=== PATIENT | male | born 1970 | race Caucasian/White ===

== ENCOUNTER 2022-06-15 16:27 | Outpatient (CLI) | payer BC, SELFPAY ==
[2022-06-15 21:52] LABS: Albumin* 4.3 g/dL (3.3-5.0); Chloride* 101 mmol/L (96-114); Potassium* 4.5 mmol/L (3.6-5.1); Sodium* 139 mmol/L (135-149)
[2022-06-15 21:54] LABS: Alanine Aminotransferase* 42 U/L (4-50); Alkaline Phosphatase* 113 U/L (40-150); Aspartate Amino Transferase* 42 U/L (12-35); Bilirubin Total* 0.8 mg/dL (0.1-1.5); Blood Urea Nitrogen* 22 mg/dL (7-30); Carbon Dioxide* 29 mmol/L (20-32); Cholesterol* 212 mg/dL (90-199); Creatinine* 1.1 mg/dL (0.5-1.5); Estimated Glomerular Filt Rate 80 ml/min; Total Protein* 7.3 g/dL (6.0-8.3); Triglycerides* 195 mg/dL (40-149)
[2022-06-15 21:55] LABS: Calcium* 9.4 mg/dL (8.4-10.6); HDL Cholesterol* 42 mg/dL (>=40); LDL Cholesterol Calculated 131 mg/dL (<100)
[2022-06-15 22:10] LABS: Glucose* 95 mg/dL (60-115)
== END 2022-06-15 16:28 | disposition home or self-care (01) ==
PROVIDERS: PCP Family Medicine; Visit Provider Family Medicine
DX: R97.20 Elevated prostate specific antigen [PSA] (principal); I10 Essential (primary) hypertension; R63.5 Abnormal weight gain; E78.5 Hyperlipidemia, unspecified
CPT/HCPCS: 80053; 80061; 84153; 84443

== ENCOUNTER 2022-10-05 15:13 | Outpatient (CLI) | payer BC, SELFPAY | END 2022-10-05 15:14 | disposition home or self-care (01) | PROVIDERS: PCP Family Medicine; Visit Provider Family Medicine | DX: Z01.818 Encounter for other preprocedural examination (principal); G47.33 Obstructive sleep apnea (adult) (pediatric); I10 Essential (primary) hypertension; Z99.89 Dependence on other enabling machines and devices | CPT/HCPCS: 87081 ==

== ENCOUNTER 2023-06-15 07:50 | Outpatient (CLI) | payer BC, SELFPAY | END 2023-06-15 07:51 | disposition home or self-care (01) | LOC: NFLDREF 06-18 09:26 | PROVIDERS: PCP Family Medicine; Referring Provider Family Medicine; Visit Provider Family Medicine | DX: E78.5 Hyperlipidemia, unspecified (principal); I10 Essential (primary) hypertension; R97.20 Elevated prostate specific antigen [PSA] | CPT/HCPCS: 80048; 80053; 80061; 84153 ==

== ENCOUNTER 2023-10-05 08:00 | Outpatient (CLI) | payer BC, SELFPAY | END 2023-10-05 08:01 | disposition home or self-care (01) | LOC: NFLDREF 10-06 02:11 | PROVIDERS: PCP Family Medicine; Referring Provider Family Medicine; Visit Provider Family Medicine | DX: E78.5 Hyperlipidemia, unspecified (principal); I10 Essential (primary) hypertension; R53.83 Other fatigue; R63.5 Abnormal weight gain; E66.9 Obesity, unspecified | CPT/HCPCS: 80053; 80061; 84439; 84443 ==

== ENCOUNTER 2024-07-24 08:56 | Outpatient (CLI) | payer BC, SELFPAY | END 2024-07-24 08:57 | disposition home or self-care (01) | PROVIDERS: PCP Family Medicine; Visit Provider Family Medicine | DX: E78.5 Hyperlipidemia, unspecified (principal); I10 Essential (primary) hypertension; E66.9 Obesity, unspecified; K76.0 Fatty (change of) liver, not elsewhere classified; R97.20 Elevated prostate specific antigen [PSA]; G47.33 Obstructive sleep apnea (adult) (pediatric) | CPT/HCPCS: 80053; 80061; 84153; 84154 ==

== ENCOUNTER 2025-03-09 01:16 | Emergency (ER) | payer BC, SELFPAY ==
[2025-03-09 01:19] VITALS: BP 150/89; PULSE 92; RESP 18; TEMP 36.1; O2SAT 95; BMI 41.8
--- OUTSIDE RECORDS SUMMARY | 2025-03-09 01:20 | XMS_ITS | Clinical Summary ---
Author Organization [facility] Address [address] [place] [address] Care Team Providers Care Image Assembler Name Role Phone Juma Morales MD Primary Care Provider Source Comments You are receiving this document as you are listed as the primary care provider,follow-up provider, or the patient has been referred to you for consultation.This is in compliance with the Medicare and[facility] EHR Incentive Program,which states Providers who transition their patient to another setting of careor provider of care or refers their patient to another provider of care shouldprovide summary care record for each transition of care or referral. [facility] Allergies Active Allergy Reactions Criticality Noted Date Comments Oxycodone Other, see comments High 10/05/2014 Agitation Penicillins Hives,Itching,Rash High 05/03/1988 Medications cyclobenzaprine (FLEXERIL) 10 MG tablet Take 1 Tablet (10 mg) by mouth. Active hydroCHLOROthiaz gretchen (ORETIC) 25 MG tablet Take 1 Tablet (25 mg) by mouth daily. 05/28/2022 Active lansoprazole (PREVACID) 30 MG capsule 05/08/2017 Active losartan (COZAAR) 50 MG tablet Take 1 Tablet (50 mg) by mouth daily. 05/28/2022 Active metoprolol succinate (TOPROL XL) 50 MG 24 hour release tablet Take 1 Tablet (50 mg) by mouth daily. 05/22/2022 Active Misc Natural Products (OSTEO BI-FLEX JOINT SHIELD OR) 07/03/2022 Active multivitamin with minerals tablet Take 1 Tablet by mouth daily. Active rosuvastatin (CRESTOR) 5 MG tablet Take 1 Tablet (5 mg) by mouth daily at bedtime. 05/12/2022 Active acetaminophen (TYLENOL) 500 MG tabletIndication s:Status post left knee replacement Take 2 Tablets (1,000 mg) by mouth three times a day as needed for Pain. 100 Tablet 11 10/30/2022 Active ibuprofen (MOTRIN) 600 MG tabletIndication s:Status post total left knee replacement Take 1 Tablet (600 mg) by mouth three times a day. 100 Tablet 1 11/10/2022 Active Active Problems Problem Noted Date Diagnosed Date Primary osteoarthritis of right knee 07/16/2024 Status post total left knee replacement 11/27/19 23 Primary osteoarthritis of both knees 07/31/2022 Social History Tobacco Use Types Packs/Day Years Used Date Smoking Tobacco: Never Tobacco Cessation:Counseling Given: Not Answered Sex and Gender Information Value Date Recorded Sex Assigned at Not on file Legal Sex Male 3:49 AM CDT Gender Identity Not on file Sexual Orientation Not on file Last Filed Vital Signs Vital Sign Reading Time Taken Comments Blood Pressure - - Pulse - - Temperature - - Respiratory Rate - - Oxygen Saturation - - Inhaled Oxygen Concentration - - Weight 157.9 kg (348 lb) 07/16/2024 5:01 PM CDT Height 185.4 cm (6' 1) 07/16/2024 5:01 PM CDT Body Mass Index 45.91 07/16/2024 5:01 PM CDT Plan of Treatment Health Maintenance Due Date Last Done Comments Colon Cancer Screening Plan Due 1969 Diabetes Screening- (based o n age and BMI) 1969 Hep C Screening (Preventive Services) 1969 PSA Screening Discussion 1969 HIV Screening (Preventive Services) 1985 Adult Preventive Visit 1987 HepB Vaccine (1) 1988 Cholesterol 2004 Pneumococcal Vaccine 50+ Yrs (1 of 1 - PCV) 2019 Zoster/Shingles Vaccine (2 o f 2) 10/14/2020 08/19/2020 COVID-19 Vaccine (4 - 2023-2 5 season) 2024 09/05/2022, 02/05/2021, 01/15/2021 Influenza Vaccine (Season Ended) 2025 09/05/2022, 08/19/2020, 09/23/2014 DTaP/Tdap/Td Vaccine (2 - Tdap) 10/08/2027 10/08/2017 HepA Vaccine Aged Out No longer eligi ble based on patient's age to complete this topic Hib Vaccine Aged Out No longer eligi ble based on patient's age to complete this topic IPV (Polio) Vaccine Aged Out No longe r eligible based on patient's age to complete this topic MCV4 Vaccine Aged Out No longer eligi ble based on patient's age to complete this topic Meningococcal B Vaccine Aged Out No l onger eligible based on patient's age to complete this topic Insurance BLUE LINK Care Teams Image Assembler Relationship Specialty Start Date End Date Juma Morales MD [address] [place] [address] PCP - General Family Practice 07/31/22
--- OUTSIDE RECORDS SUMMARY | 2025-03-09 01:20 | XMS_ITS | Encounter Summary ---
Author Organization [facility] Address [address] [place] [address] Care Team Providers Care Tag Press Operator Name Role Phone None, Bfp Primary Care Provider Billy Car, January Primary Care Provider [phone] Clinic, [facility] Primary Care Provider Demarcus Renteria Primary Care Provider Encounter Details Date Type Department Care Team (Late st Contact Info) Description 09/16/2014 [facility] [address] [place] [phone] Herman Good MD [facility] [address] [phone] Preoperative examination, unspecified (Primary Dx) Social History Tobacco Use Types Packs/Day Years Used Date Smoking Tobacco: Never Smokeless Tobacco: Never Alcohol Use Standard Drinks/Week Comments Yes 0 (1 standard drink = 0.6 oz pur e alcohol) 6 dinks weekly Sex and Gender Information Value Date Recorded Sex Assigned at Not on file Legal Sex Male 2:58 AM GROUP PROGRAM MANAGER Gender Identity Not on file Sexual Orientation Not on file documented as of this encounter Plan of Treatment Not on file documented as of this encounter Results * Methicillin Resistant Staph Aureus PCR (09/23/2014 5:10 PM GROUP PROGRAM MANAGER) Specimen Description [facility] Methicillin Resist/Sens S. aureus PCR Negative MRSA Negative: SA Negative MRSA and Staphylococcus aureus target DNA not detected, presumed negative for MRSA and SA colonization or the number of bacteria present may be below the limit of detection for the assay. FDA approved assay performed using [employer] GeneXpert(R) real-time PCR. NEG [facility] 09/23/2014 5:10 PM GROUP PROGRAM MANAGER 09/23/2014 5:33 PM GROUP PROGRAM MANAGER us Herman Good MD LAB - MICRO GENERAL ORDERABLES Final Result [facility] [address] [place] [address] [facility] [address] [place], [place] [address] [phone] documented in this encounter Visit Diagnoses Diagnosis Preoperative examination, unspecified- Primary documented in this encounter Care Teams Tag Press Operator Relationship Specialty Start Date End Date None, Bfp PCP - General 11/04/99 09/29/14 JocelineJanuary PCP - General Physician Cloud Systems Architect 09/30/14 10/01/16 [facility], [address] [address] PCP - General 10/02/16 05/26/20 Dem[address]us Renteria [address] [address] PCP - General Family Practice 05/27/20 documented as of this encounter
--- OUTSIDE RECORDS SUMMARY | 2025-03-09 01:20 | XMS_ITS | Encounter Summary ---
Author Organization [facility] Address [address] [place] [address] Care Team Providers Care Automated Logistics Specialist Name Role Phone LeonardoalfredaJanuary Primary Care Provider [phone] [facility] Primary Care Provider Demarcus Renteria Primary Care Provider Encounter Details Date Type Department Care Team (Late st Contact Info) Description 09/20/2016 [facility] [address] [place] [phone] Herman Good MD [facility] [address] [phone] Pre-operative laboratory examination (Primary Dx) Social History Tobacco Use Types Packs/Day Years Used Date Smoking Tobacco: Never Smokeless Tobacco: Never Alcohol Use Standard Drinks/Week Comments Yes 0 (1 standard drink = 0.6 oz pur e alcohol) 6 dinks weekly Sex and Gender Information Value Date Recorded Sex Assigned at Not on file Legal Sex Male 2:58 AM WATER VALVE REPAIRER Gender Identity Not on file Sexual Orientation Not on file documented as of this encounter Plan of Treatment Not on file documented as of this encounter Results * Methicillin Resistant Staph Aureus PCR (09/20/2016 4:25 PM WATER VALVE REPAIRER) Specimen Description [facility] Methicillin Resist/Sens S. aureus PCR Negative MRSA Negative: SA Negative MRSA and Staphylococcus aureus target DNA not detected, presumed negative for MRSA and SA colonization or the number of bacteria present may be below the limit of detection for the assay. FDA approved assay performed using [employer] GeneXpert(R) real-time PCR. NEG [facility] 09/20/2016 4:25 PM WATER VALVE REPAIRER 09/20/2016 6:09 PM WATER VALVE REPAIRER us Herman Good MD LAB - MICRO GENERAL ORDERABLES Final Result [facility] [address] [place] [address], [facility] [address] [place], [place] [address] [phone] documented in this encounter Visit Diagnoses Diagnosis Pre-operative laboratory examination- Primary Pre-procedural laboratory examination documented in this encounter Care Teams Automated Logistics Specialist Relationship Specialty Start Date End Date January PCP - General Physician Lead Generation Specialist 09/30/14 10/01/16 [facility], [address] [address] PCP - General 10/02/16 05/26/20 Demarcus Renteria [address] [address] PCP - General Family Practice 05/27/20 documented as of this encounter
--- OUTSIDE RECORDS SUMMARY | 2025-03-09 01:20 | XMS_ITS | Clinical Summary ---
Author Organization [facility] Address [address] [place] [address] Care Team Providers Care Dietitian Teaching Name Role Phone Juma Morales MD Primary Care Provider [phone] Allergies Active Allergy Reactions Criticality Noted Date Comments Atorvastatin Myalgia 10/11/2022 Lisinopril Cough 10/11/2022 Penicillins Hives 10/27/2008 Medications hydrochlorothiazid e (HCTZ) 25 mg tablet Take 1 tablet by mouth once daily. 0 6 Active lansoprazole (PREVACID) 30 mg capsule TAKE 1 CAPSULE BY MOUTH DAILY TAKE 30 MINUTES PRIOR TO BREAKFAST OR FIRST MAIN MEAL OF THE DAY 3 9 Active metoprolol succinate (TOPROL XL) 50 mg sustained-release tablet Take 50 mg by mouth once daily. 0 Active losartan (COZAAR) 25 mg tablet 0 Active cvwwgctj-ebm-kkty- vitamin K 18 mg iron-25 mcg tab Take 1 Tablet by mouth once daily. Active sennosides-docusat e (SENOKOT S) (8.6-50 mg) tabletIndications: Primary osteoarthritis of left knee Take as needed for constipation. Hold for loose stool. Start with taking 1 tablet by mouth 2 times a day for 2 doses. If no bowel movement, increase to 2 tablets 2 times a day for 2 doses. If no bowel movement again, increase to 3 tablets 2 times a day. If greater than 2 bowel movements in 24 hours at any point, reduce to 1 tablet 2 times a day. 50 Tablet 10/17/2022 11:23 AM CITY BAILIFF 2 Active WalkerIndications: Primary osteoarthritis of left knee Walker with front wheels for home use. 1 Each 2 Active ibuprofen (IBU) 600 mg tabletIndications: Primary osteoarthritis of left knee Take 1 Tablet (600 mg) by mouth every 8 hours if needed for Pain. Maximum of 3200 mg in 24 hours. 60 Tablet 1 10/17/2022 11:23 AM CITY BAILIFF 2 Active HYDROmorphone (DILAUDID) 2 mg tabletIndications: Primary osteoarthritis of left knee Take 1-2 Tablets (2-4 mg) by mouth every 4 hours if needed for Pain. 40 Tablet 10/17/2022 11:23 AM CITY BAILIFF 2 Active Active Problems Problem Noted Date Diagnosed Date Primary osteoarthritis of left knee 10/12/2022 DJD (degenerative joint disease) 11/02/2008 Social History Tobacco Use Types Packs/Day Years Used Date Smoking Tobacco: Never Smokeless Tobacco: Never Tobacco Cessation:Counseling Given: Not Answered Alcohol Use Standard Drinks/Week Comments Never 0 (1 standard drink = 0.6 oz pur e alcohol) Social Connections Answer Date Recorded Frequency of Communication with Friends and Fami ly Not on file 10/22/2021 Financial Resource Strain Answer Date R ecorded Difficulty of Paying Living Expenses Not on file 10/22/2021 Difficulty of Paying Living Expenses Not on file 10/22/2021 Sex and Gender Information Value Date Recorded Sex Assigned at Not on file Legal Sex Male 7:32 AM CITY BAILIFF Gender Identity Not on file Sexual Orientation Not on file Obstetrics History Last Filed Vital Signs Vital Sign Reading Time Taken Comments Blood Pressure 147/74 10/17/2022 2:03 PM CITY BAILIFF Pulse 93 10/17/2022 2:03 PM CITY BAILIFF Temperature 36.7 C (98.1 F) 10/17/2022 10:56 AM CITY BAILIFF Respiratory Rate 16 10/17/2022 2:03 PM CITY BAILIFF Oxygen Saturation 92% 10/17/2022 2:03 PM CITY BAILIFF Inhaled Oxygen Concentration - - Weight 162.3 kg (357 lb 12.9 oz) 10/17/2022 6:54 AM CITY BAILIFF Height 188 cm (6' 2) 10/17/2022 6:54 AM CITY BAILIFF Body Mass Index 45.94 10/17/2022 6:54 AM CITY BAILIFF Plan of Treatment Health Maintenance Due Date Last Done Comments Tdap 1980 Depression screening for age 12+ 1981 HIV for age 15-65 1984 Hepatitis C screening for ag e 18-79 1987 Tetanus booster 1989 Colonoscopy through age 75 2014 Lipids for age 45-75 2014 Pneumococcal series for age 50+ (1 of 1 - PCV) 2019 Zoster (shingles) series for age 50+ (1 of 2) 2019 BMI (ht and wt on same day) for age 18+ 02/05/2021 02/06/2020, 02/14/2019, 02/22/2018, Additional history exists COVID-19 vaccine series ( season) 2024 09/05/2022, 02/05/2021, 01/15/2021 Influenza Vaccine (Season Ended) 2025 Medical Devices Implanted Type Area Layer Out Device Identifier Shelf Expiration Date Model / Serial / Lot Cmnt Bone Surg Simplex - [id number] Implanted:Qty: 1 on 11/02/[address] [facility] Right: Hip [employer] 05/22/2011 [id number] # / / [id number] Implant On The Fly - [id number] Implanted:Qty: 1 on 11/02/[address] [facility] Right: Hip [employer] 07/22/2012 [id number] / / [id number] Description:CORMET CUP SIZE 9/60MM Implant On The Fly - [id number] Implanted:Qty: 1 on 11/02/[address] [facility] Right: Hip [employer] 05/22/2012 [id number] / / [id number] Description:CORMET HEAD 9/54 MM Evolution Mp Cs Implanted:Qty: 1 on 10/17/2022 by Malik Ureña MD at [facility] Left: Knee H [employer] 04/01/2028 [id number] / / [id number] Cmnt Bone Simplex Hv - [id number] Implanted:Qty: 1 on 10/17/2022 by Malik Ureña MD at [facility] Left: Knee [employer] 03/21/2024 [id number] / / [id number] Cmnt Bone Simplex Hv - [id number] Implanted:Qty: 1 on 10/17/2022 by Malik Ureña MD at [facility] Left: Knee [employer] 05/21/2024 [id number] / / [id number] Evolution Tibial Base Implanted:Qty: 1 on 10/17/2022 by Malik Ureña MD at [facility] Left: Knee H [employer] 09/16/2030 [id number] / / [id number] Implanted:Qty: 1 on 10/17/2022 by Malik Ureña MD at [facility] Left: Knee H [employer] 04/01/2030 [id number] / / [id number] Evolution Cs/Cr Femoral Component Implanted:Qty: 1 on 10/17/2022 by Malik Ureña MD at [facility] Left: Knee 09/14/2028 [id number] / / [id number] Explanted Type Area Layer Out Device Identifier Shelf Expiration Date Model / Serial / Lot Pin Millan Nonthreaded 01/04 Strl [id number] Mk - [id number] Explanted:Qty: 1 on 11/02/[address] [facility] Right: Hip Mk [employer] 10/22/2017 [id number] / / [id number] Insurance [facility] x5 (Home) [phone] x5 (Work) ATTN ACCTS PAYABLE [address] [address] [place] [address] Advance Directives * Full Code (Latest Code Status on File) Date Activated Date Inactivated Comments 10/17/2022 6:32 AM 10/17/2022 4:29 PM Question Answer Comments Code Status Discussion: Not Discussed * Full Code Date Activated Date Inactivated Comments 11/02/2008 3:22 PM 11/04/2008 1:53 PM * Full Code Date Activated Date Inactivated Comments 11/02/2008 1:27 PM 11/02/2008 3:22 PM Care Teams Dietitian Teaching Relationship Specialty Start Date End Date Juma Morales MD [address] [place] [address] PCP - General Family Practice 09/29/22
--- OUTSIDE RECORDS SUMMARY | 2025-03-09 01:20 | XMS_ITS | Clinical Summary ---
Author Organization [place] Address [address] [place] [id number] Care Team Providers Care Senior Science Consultant Name Role Phone Demarcus Renteria Primary Care Provider Allergies Active Allergy Reactions Criticality Noted Date Comments Atorvastatin Muscle Pain (Myalgia) 06/08/2020 Hydromorphone Medium 06/11/2020 Oral route gives chest pain per patient Lisinopril Cough 06/07/2020 Oxycodone High 10/05/2014 Agitation Penicillins Hives 03/10/2014 Medications hydrochlorothiaz gretchen (MICROZIDE) 12.5 MG capsule Take 25 mg by mouth every morning Active LANSOPRAZOLE PO Take 30 mg by mouth every morning (before breakfast) Active COMPRESSION STOCKINGSIndicat ions:Status post hip replacement, unspecified laterality 1 each continuous 1 each 0 6 Active metoprolol succinate ER (TOPROL-XL) 50 MG 24 hr tablet Take 50 mg by mouth daily Active losartan (COZAAR) 25 MG tablet Take 25 mg by mouth daily Active cyclobenzaprine (FLEXERIL) 10 MG tablet Take 10 mg by mouth 3 times daily as needed for muscle spasms Active multivitamin w/minerals (MULTI-VITAMIN) tablet Take 1 tablet by mouth daily Active HYDROcodone-acet aminophen (NORCO) 10-325 MG per tabletIndication s:S/P lumbar fusion Take 1-2 tablets by mouth every 4 hours as needed for moderate to severe pain 50 tablet 0 Active Active Problems Problem Noted Date Diagnosed Date S/P total knee arthroplasty, left 10/20/2022 Primary osteoarthritis of both knees 10/20/2022 S/P lumbar fusion 06/10/2020 Degenerative arthritis of hip 10/05/2014 Status post hip replacement 11/09/2008 Overview (07/22/2012): (Problem list name updated by automated process. Provider to review and confirm.) Resolved Problems Problem Noted Date Diagnosed Date Resolved Date Aftercare following right hi p joint replacement surgery 10/18/2016 03/02/2017 Abnormal gait 10/18/2016 03/02/2017 Aftercare following joint replacement 11/09/2008 01/27/2009 Social History Tobacco Use Types Packs/Day Years Used Date Smoking Tobacco: Never Smokeless Tobacco: Never Alcohol Use Standard Drinks/Week Comments Yes 0 (1 standard drink = 0.6 oz pur e alcohol) 6 drinks weekly Adolescent Education Answer Date Record ed Getting School Help Needed Not on file 07/28 Sex and Gender Information Value Date Recorded Sex Assigned at Not on file 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 Gender Identity Not on file Sexual Orientation Not on file Last Filed Vital Signs Vital Sign Reading Time Taken Comments Blood Pressure 150/79 06/13/2020 8:48 AM CDT Pulse 100 06/13/2020 11:00 AM CDT Temperature 36.6 C (97.8 F) 06/13/2020 8:48 AM CDT Respiratory Rate 18 06/13/2020 8:48 AM CDT Oxygen Saturation 98% 06/13/2020 8:48 AM CDT Inhaled Oxygen Concentration - - Weight 152.9 kg (337 lb) 06/10/2020 9:19 AM CDT Height 188 cm (6' 2) 06/10/2020 9:19 AM CDT Body Mass Index 43.27 06/10/2020 9:19 AM CDT Plan of Treatment Health Maintenance Due Date Last Done Comments ADVANCE CARE PLANNING 1969 ANNUAL REVIEW OF HM ORDERS 1969 CT COLONOGRAPHY 1969 FIT 1969 FLEX SIG 1969 sDNA (Cologuard) 1969 YEARLY PREVENTIVE VISIT 1972 COLONOSCOPY 1979 COLORECTAL CANCER SCREENING 1979 HIV SCREENING 1984 HEPATITIS C SCREENING 1987 HEPATITIS B IMMUNIZATION (1 of 3 - 19+ 3-dose series) 1988 LIPID 2009 Pneumococcal Vaccine: 50+ Years (1 of 1 - PCV) 2019 DIABETES SCREENING 10/03/2019 10/03/2016, 10/06/2014, 10/05/2014 ZOSTER IMMUNIZATION (2 of 2) 10/14/2020 08/19/2020 COVID-19 Vaccine (4 - 2023-2 5 season) 2024 09/05/2022, 02/05/2021, 01/15/2021 PHQ-2 (once per calendar year) 2024 INFLUENZA VACCINE (Season Ended) 2025 09/05/2022, 08/19/2020, 09/23/2014 DTAP/TDAP/TD IMMUNIZATION (2 - Td or Tdap) 10/08/2027 10/08/2017 HPV IMMUNIZATION Aged Out No longer e ligible based on patient's age to complete this topic MENINGITIS IMMUNIZATION Aged Out No l onger eligible based on patient's age to complete this topic Medical Devices Implanted Type Area Title Insurance Sales Representative Device Identifier Shelf Expiration Date Model / Serial / Lot Graft Bone Magnifuse [id number] Implanted:Qty: 1 on 06/10/2020 by Dewey Danielson MD at [facility] Bone/Tissue /Biologic N/A: Spine Lumbar [employer] 04/06/2022 [id number] / [id number] / Imp Scr Hip Howm 6.5x30mm Gap Implanted:Qty: 1 on 10/02/2016 by Herman Good MD at [facility] Metallic Hardware/An chor Right: Hip [employer] 10/24/2020 / / [id number] Imp Scr Hip Howm 6.5x15mm Gap Implanted:Qty: 1 on 10/02/2016 by Herman Good MD at [facility] Metallic Hardware/An chor Right: Hip [employer] 08/22/2019 / / [id number] Imp Scr Hip Howm 6.5x30mm Gap Implanted:Qty: 1 on 10/02/2016 by Herman Good MD at [facility] Metallic Hardware/An chor Right: Hip [employer] 06/28/2021 / / [id number] Reline-O Screw, 6.5x50mm Implanted:Qty: 2 on 06/10/2020 by Dewey Danielson MD at [facility] Metallic Hardware/An chor N/A: Spine Lumbar [employer] [id number] / / [id number] [id number] 2019 Reline-O Screw, 7.5x50mm Implanted:Qty: 6 on 06/10/2020 by Dewey Danielson MD at [facility] Metallic Hardware/An chor N/A: Spine Lumbar [employer] [id number] / / [id number] 10AUG 2019 Imp Liner Strk Trident X3 Poly 36mm 0deg Sz G 623-00-36g Implanted:Qty: 1 on 10/02/2016 by Herman Good MD at [facility] Total Joint Component/I nsert Right: Hip [employer] 05/18/2021 623-00-36G / / [id number] Imp Shell Acet Strk Multi-Hole Rev 62mm Sz G 509-02-62g Implanted:Qty: 1 on 10/02/2016 by Herman Good MD at [facility] Total Joint Component/I nsert Right: Hip [employer] 01/22/2021 509-02-62G / / [id number] Imp Head Femoral Strk Biolox Delta Ceramic 36mm +0mm Implanted:Qty: 1 on 10/02/2016 by Herman Good MD at [facility] Total Joint Component/I nsert Right: Hip [employer] 05/30/2021 6570-0-136 / / [id number] Imp Stem Femoral Hip Strk Accolade Ii 132deg Sz 7 [id number] Implanted:Qty: 1 on 10/02/2016 by Herman Good MD at [facility] Total Joint Component/I nsert Right: Hip [employer] 06/28/2021 [id number] / / [id number] Imp Liner Strk Trident X3 Poly 36mm 0deg Sz F 623-00-36f Implanted:Qty: 1 on 10/05/2014 by Herman Good MD at [facility] Left: Hip [employer] 06/21/2019 623-00-36F / / [id number] Tritanium Hemispherical Cluster Hole Shell 60mm F Implanted:Qty: 1 on 10/05/2014 by Herman Good MD at [facility] Left: Hip [employer] 04/20/2019 502-03-60F / / [id number] Imp Scr Bone Strk Torx 6.5x20mm Can Implanted:Qty: 1 on 10/05/2014 by Herman Good MD at [facility] Left: Hip [employer] 04/20/2019 / / [id number] Accolade Ii 127deg Neck Angle Hip Stem #7 Implanted:Qty: 1 on 10/05/2014 by Herman Good MD at [facility] Left: Hip [employer] 07/21/2019 [id number] / / [id number] Imp Head Femoral Strk Biolox Delta Ceramic 36mm +0mm Implanted:Qty: 1 on 10/05/2014 by Herman Good MD at [facility] Left: Hip [employer] 07/21/2019 6570-0-136 / / [id number], [id number], 15deg Implanted:Qty: 1 on 06/10/2020 by Dewey Danielson MD at [facility] N/A: Spine Lumbar [employer] 06/05/2023 [id number] / / [id number] Cocr Jaciel [id number] Implanted:Qty: 1 on 06/10/2020 by Dewey Danielson MD at [facility] N/A: Spine Lumbar [employer] [id number] / / [id number] 06/10/2020 Cocr Jaciel [id number] Implanted:Qty: 1 on 06/10/2020 by Dewey Danielson MD at [facility] N/A: Spine Lumbar [employer] [id number] / / [id number] Reline Lock Screw Implanted:Qty: 8 on 06/10/2020 by Dewey Danielson MD at [facility] N/A: Spine Lumbar [employer] [id number] / / [id number] Procedures Procedure Name Priority Date/Time Associated Diagnosis Comments BASIC METABOLIC PANEL Routine 10/03/2016 6:51 AM SPEAKING UNIT ASSEMBLER from Last 3 Months or Most Recently Relevant to Health Maintenance Results * (ABNORMAL) Basic metabolic panel (10/03/2016 6:51 AM SPEAKING UNIT ASSEMBLER) Sodium 138 133 - 144 mmol/L [facility] Potassium 4.4 3.4 - 5.3 mmol/L [facility] Chloride 101 94 - 109 mmol/L [facility] Carbon Dioxide 27 20 - 32 mmol/L [facility] Anion Gap 10 3 - 14 mmol/L [facility] Glucose 155(H) 70 - 99 mg/dL [facility] Urea Nitrogen 18 7 - 30 mg/dL [facility] Creatinine 1.05 0.66 - 1.25 mg/dL [facility] GFR Estimate 76 >60 mL/min/1. m2 [facility] Comment:Non GFR Calc GFR Estimate If Black >90 GFR Calc >60 mL/min/1. 7m2 [facility] Calcium 8.7 8.5 - 10.1 mg/dL [facility] Blood specimen (specimen) 10/03/2016 6:51 AM SPEAKING UNIT ASSEMBLER 10/03/2016 7:18 AM SPEAKING UNIT ASSEMBLER us Katie Rubio MD LAB - BLOOD ORDERABLES Final Res ult [facility] [address] [place] [address], [facility] [phone] from Last 3 Months or Most Recently Relevant to Health Maintenance Insurance [employer] Advance Directives For more information, please contact: [phone] * Full Code (Latest Code Status on File) Date Activated Date Inactivated Comments 06/10/2020 9:04 PM Question Answer Comments Code status determined by: Discussion with patie nt/ legal decision maker * Full Code Date Activated Date Inactivated Comments 06/10/2020 6:13 PM 06/10/2020 9:04 PM All basic an d advanced life-sustaining interventions are performed as appropriate Question Answer Comments Code status determined by: Discussion with patie nt/ legal decision maker * Full Code Date Activated Date Inactivated Comments 10/02/2016 4:07 PM 10/03/2016 8:25 PM * Full Code Date Activated Date Inactivated Comments 10/05/2014 5:51 PM 10/06/2014 10:16 PM Care Teams Senior Science Consultant Relationship Specialty Start Date End Date Demarcus Renteria [id number] [id number] PCP - General Family Practice 05/27/20
--- NOTE | 2025-03-09 01:33 | CRLHL7_ITS ---
For Patients: As a result of the 21st Century Cures Act, medical imaging exams and procedure reports are released immediately into your electronic medical record. You may view this report before your referring provider. If you have questions, please contact your health care provider. INDICATION: Left flank pain history of stones TECHNIQUE: CT Abdomen and pelvis without i.v. contrast. Coronal and sagittal reformats were obtained. COMPARISON: None FINDINGS: Lower chest: A 9 mm nodule is noted in the right middle lobe. High-risk patients can include those of older age, history of heavy smoking, and upper lobe nodules or nodules with irregular or spiculated margins. Fleischner Society Recommendations are not applicable in patients younger than 35, patients with known cancer or immunocompromised states. Liver: Unremarkable. Spleen: Unremarkable. Pancreas: Unremarkable. Gallbladder: Unremarkable. Kidney: See comments in the Pelvis section. Adrenal: Unremarkable. Bowel: The stomach, small bowel, and colon are unremarkable. The appendix is normal in appearance and size. Vascular: Unremarkable. Lymph: Unremarkable. Peritoneum: Unremarkable. No pneumoperitoneum is seen. No significant ascites is noted. Pelvis: Evaluation of the pelvic soft tissues, distal ureters and osseous structures are limited by beam hardening artifacts from the bilateral hip prosthesis. There is a suspected 1 mm stone near the left ureterovesicular junction but this region is obscured by beam hardening artifacts. Mild left hydroureter is noted. Soft tissue: Eventration of the midline abdominal wall is present with diastases of the rectus abdominus muscles. Bone: Posterior spinal fusion of L2-L5 and anterior spinal fusion of L4-5 noted. Total laminectomy of L3 and L4 seen. IMPRESSIONS: 1. There is a suspected 1 mm stone near the left ureterovesicular junction but this region is obscured by beam hardening artifacts. Mild left hydroureter is noted. Correlation with clinical history and urinalysis is recommended. 2. A 9 mm nodule is noted in the right middle lobe. In accordance with the 2017 Revised Fleischner Society Recommendations, evaluation with follow-up CT in 3 months, biopsy or PET scan is recommended to exclude a primary pulmonary neoplasm. REFERENCE: 1. Dennis Johnson, Chema Rossi et al. Guidelines for Management of Incidental Pulmonary Nodules Detected on CT Images: From the Fleischner Society 2017. Radiology. 2017;284(1):228-43. DOI:10.1148/radiol.[id number] - Pubmed. Dictated by Buddy Gloria MD @ 03/09/2025 2:12:52 AM Please note that all CT scans at this facility use dose modulation, iterative reconstruction, and/or weight-based dosing when appropriate to reduce radiation dose to as low as reasonably achievable. Dictated by: Buddy Gloria MD @ 03/09/2025 02:13:01 (Electronically Signed)
--- NOTE | 2025-03-09 01:34 | ED.GENADULT ---
HPI - General Adult General Date Seen: 03/09/25 Chief complaint: Flank Pain Stated complaint: possible kidney stone Time Seen by Provider: 03/09/25 01:27 Source: patient Mode of arrival: ambulatory Limitations: no limitations History of Present Illness HPI narrative: patient is a 54-year-old male presenting for left flank pain. States pain started suddenly at 23:30 and it will come up from sleep. describes as a sharp stabbing sensation in his left mid flank region. States he has had pain like this about 10 years ago when he had a previous kidney stone. Has not noticed any fevers or chills. Does have some nausea. States the pain seems to come and go. Has not taking anything for pain yet. Denies any abdominal pain. Does have some nausea but has not had any vomiting. Has not noticed any dysuria but has had blood in his urine. No blood in his urine is chronic low he states that does not seem any different than his baseline. Denies any chest pain, shortness of breath, lightheadedness, dizziness, weakness, numbness, diarrhea, constipation, headache, vision changes. No other concerns noted at this time. Related Data Home Medications ?Medication ?Instructions ?Recorded ?Confirmed multivitamin 1 tab PO QDAY 06/15/22 07/24/24 Previous Rx's ?Medication ?Instructions ?Recorded lansoprazole 30 mg capsule,delayed 30 mg PO QDAY #90 caps 07/24/24 release metoprolol succinate 50 mg 50 - 100 mg (1 - 2 x 50 mg) PO 07/24/24 tablet,extended release 24 hr DAILY #180 tabs losartan 100 1 tab PO DAILY #90 tabs 08/01/24 mg-hydrochlorothiazide 25 mg tablet semaglutide (weight loss) 1.7 1.7 mg (0.75 mL) subcut QWEEK #3 mL 02/16/25 mg/0.75 mL subcutaneous pen injector ketorolac 10 mg tablet 10 mg PO Q6H PRN pain #20 tabs 03/09/25 tamsulosin 0.4 mg capsule 0.4 mg PO DAILY #7 caps 03/09/25 Allergies Allergy/AdvReac Type Severity Reaction Status Date / Time penicillin V Allergy Intermediate Hives Verified 07/24/24 08:44 lisinopril Allergy Mild Cough Verified 07/24/24 08:44 atorvastatin AdvReac Intermediate Myalgias Verified 07/24/24 08:44 Review of Systems Status of ROS: Reports: 10 or more systems reviewed and unremarkable except as noted in History and below PFSH [facility] Medical History (Updated 03/09/25 @ 02:25 by Phillip Cabrera DO) COVID ?U07.1 - COVID-19 (ICD-10) Weight gain, abnormal ?R63.5 - Abnormal weight gain (ICD-10) Plantar fasciitis of right foot ?M72.2 - Plantar fascial fibromatosis (ICD-10) Cellulitis of right lower extremity ?L03.115 - Cellulitis of right lower limb (ICD-10) Surgical History (Updated 05/26/22 @ 08:37 by Ariane Landin) History of total left hip replacement ?Z96.642 - Presence of left artificial hip joint (ICD-10) History of operative procedure on hip ?Z98.890 - Other specified postprocedural states (ICD-10) History of knee surgery ?Z98.890 - Other specified postprocedural states (ICD-10) History of fusion of lumbar spine ?Z98.1 - Arthrodesis status (ICD-10) Family History (Updated 05/26/22 @ 08:40 by Ariane Landin) Sister Breast cancer Mother History of colonic polyps High blood pressure Father Coronary artery disease Aunt Diabetes Family/Other High blood pressure Son Leukemia Social History (Updated 05/26/22 @ 08:40 by Ariane Landin) Narrative: Has 2 children Non-smoker Smoking Status: Never smoker Do you use any of these nicotine containing products: None How often do you have a drink containing alcohol: never AUDIT-C Alcohol total score: 0 Non-prescribed substance use: denies use Exam Narrative: Exam Narrative: Const: Well-nourished, Well-developed, in mild distress Eyes: PERRL, no conjunctival injection, and symmetrical lids HENT: Atraumatic external nose and ears. Moist mucous membranes. Neck: Symmetric, trachea midline, No thyromegaly. CVS: RRR, No murmurs or gallops. Peripheral pulses 2+ and equal in all extremities RESP: Unlabored respiratory effort. Clear to auscultation bilaterally. GI: Nontender/Nondistended, No rebound or guarding. Mild left CVA tenderness MSK:Extremities w/o deformity, Normal Active ROM Skin: Warm, Dry. No rashes or lesions. Neuro: Normal Muscle tone, No focal neurological deficits. Psych: Awake, Alert, & Oriented x3. Appropriate mood and affect. Const: Vital Signs, click to edit/add: Vital Signs - 24 hr 03/09/25 01:19 Temperature 96.9 F L Pulse Rate [Right Pulse Oximeter] 92 Respiratory Rate 18 Blood Pressure [Ri ght Upper Arm] 150/89 H Pulse Oximetry 95 Oxygen Delivery Me thod Room Air Course Vital Signs Vital signs: Initial Vital Signs Temperature 96.9 F L 03/09/25 01:19 Temperature Source Temporal Artery Scan 03/09/25 01:19 Pulse Rate 92 03/09/25 01:19 Pulse Rhythm Regular 03/09/25 01:19 Respiratory Rate 18 03/09/25 01:19 Blood Pressure 150/89 H 03/09/25 01:19 Blood Pressure Mean 109 H 03/09/25 01:19 Blood Pressure Position Sitting 03/09/25 01:19 Pulse Oximetry 95 03/09/25 01:19 Oxygen Delivery Method Room Air 03/09/25 01:19 Vital Signs Temperature 96.9 F L 03/09/25 01:19 Pulse Rate 92 03/09/25 01:19 Respiratory Rate 18 03/09/25 01:19 Blood Pressure 150/89 H 03/09/25 01:19 Pulse Oximetry 95 03/09/25 01:19 Oxygen Delivery Method Room Air 03/09/25 01:19 Temperature 96.9 F L 03/09/25 01:19 Pulse Rate 92 03/09/25 01:19 Respiratory Rate 18 03/09/25 01:19 Blood Pressure 150/89 H 03/09/25 01:19 Pulse Oximetry 95 03/09/25 01:19 Oxygen Delivery Method Room Air 03/09/25 01:19 Medications Administered Medications: Discontinued Medications Generic Name Dose Route Start Last Admin Trade Name Freq PRN Reason Stop Dose Admin Ketorolac Tromethamine 15 mg 03/09/25 01:33 03/09/25 01:52 Ketorolac 15 Mg/Ml Inj IVP 03/09/25 01:34 15 mg ONCE ONE Administration Ondansetron HCl 4 mg 03/09/25 01:33 03/09/25 01:52 Ondansetron 2 Mg/Ml Inj IVP 03/09/25 01:34 4 mg ONCE ONE Administration Medical Decision Making MDM Narrative Medical decision making narrative: patient is a 54-year-old male presenting for flank pain. The differential diagnosis of flank pain including vascular causes such as aortic aneurysm, renal vascular issues, aortic dissection, mesenteric ischemia, nephrolithiasis, ureter stricture, pyelonephritis, along with several other GI and gynecological/ causes . Based on his description my 1. Differential at this time is a kidney stone. Will do a CT scan non con. He is having no abdominal discomfort and I do not believe contrast is necessary. While also order a CBC, urinalysis, BMP. Zofran given for nausea and Toradol for pain. Urinalysis shows blood in the urine but no signs of a UTI-his lab work shows no concerning abnormalities. CT scan shows a likely 1 mm stone at the UVJ junction with some mild hydroureter on the left. There is some beam hardening artifact making it difficult to definitively say. This is consistent with the patient's symptoms. Toradol did seem to help somewhat with his symptoms. He declines any narcotics. I did inform him of the nodule seen in his long in the states they are aware of it. Patient will be discharged Zofran via instymeds and Toradol in tamsulosin sent to his pharmacy Lab Data Labs: Lab Results 03/09/25 Range/Units 01:45 WBC 8.85 (4.50-11.00) K/uL RBC 4.95 (4.30-5.90) m/uL Hgb 15.1 (13.5-17.5) gm/dL Hct 44.0 (37.0-53.0) % MCV 89 (80-100) fL MCH 31 (26-34) pg MCHC 34 (32-36) gm/dL RDW Coeff of Beck 13.0 (11.5-15.5) % Plt Count 281 (140-440) K/uL Neut % (Auto) 67.1 (42.0-72.0) % Lymph % (Auto) 21.2 (20-44) % Sac % (Auto) 9.5 (0.0-11.0) % Eos % (Auto) 1.9 (0.0-7.0) % Baso % (Auto) 0.2 (0.0-3.0) % Neut # (Auto) 5.93 (1.7-7.0) K/uL Lymph # (Auto) 1.88 (0.90-2.90) K/uL Sac # (Auto) 0.80 (0.00-0.90) K/UL Eos # (Auto) 0.17 (0.00-0.50) K/uL Baso # (Auto) 0.02 (0.00-0.30) K/uL Abs Immat Gran (auto) 0.01 (0.00-0.30) K/uL Imm/Tot Granulo (auto) 0.1 % Sodium 142 (135-149) mmol/L Potassium 3.8 (3.6-5.1) mmol/L Chloride 106 (96-114) mmol/L Carbon Dioxide 27 (20-32) mmol/L Anion Gap 9 (7-15) mEq/L BUN 20 (7-30) mg/dL Creatinine 1.1 (0.5-1.5) mg/dL Estimated Creat Clear 90.69 Estimated GFR 79 ml/min Glucose 109 (60-115) mg/dL Calcium 9.4 (8.4-10.6) mg/dL Urine Color Yellow (Yellow) Urine Appearance Clear (Clear) Urine pH 5.5 (5.0-8.5) Ur Specific Springer 1.025 (1.000-1.030) Urine Protein 1+ A (Negative) Urine Glucose (UA) Negative (Negative) Urine Ketones Trace A (Negative) Urine Blood 3+ A (Negative) Urine Nitrite Negative (Negative) Urine Bilirubin 1+ A (Negative) Urine Urobilinogen 0.2 (0.2-1.0) Ur Leukocyte Esterase Negative (Negative) Urine RBC 5-10 A (0-2) Urine WBC 0-2 (0-5) Ur Squamous Epith Cells None (None-Few) Urine Bacteria None (None) Imaging Data CT scan abdomen pelvis: Attestation: I have reviewed the pertinent imaging results. Radiologist's impression: 1. There is a suspected 1 mm stone near the left ureterovesicular junction but this region is obscured by beam hardening artifacts. Mild left hydroureter is noted. Correlation with clinical history and urinalysis is recommended. 2. A 9 mm nodule is noted in the right middle lobe. In accordance with the 2017 Revised Fleischner Society Recommendations, evaluation with follow-up CT in 3 months, biopsy or PET scan is recommended to exclude a primary pulmonary neoplasm. REFERENCE: 1. Dennis Johnson, Chema Rossi et al. Guidelines for Management of Incidental Pulmonary Nodules Detected on CT Images: From the Fleischner Society 2017. Radiology. 2017;284(1):228-43. DOI:10.1148/radiol.[id number] - Pubmed. Dictated by Buddy Gloria MD @ 03/09/2025 2:12:52 AM Please note that all CT scans at this facility use dose modulation, iterative reconstruction, and/or weight-based dosing when appropriate to reduce radiation dose to as low as reasonably achievable. Dictated by: Buddy Gloria MD @ 03/09/2025 02:13:01 Discharge Plan Discharge Clinical Impression: Urolithiasis Qualifiers: Urinary calculus location: ureter Qualified Code(s): N20.1 - Calculus of ureter Patient Disposition: Home, Self-Care Condition: Stable Instructions: How to Strain Your Urine (ED) Additional Instructions: Use the Toradol as needed for your pain. This is the same class of drugs ibuprofen and other NSAIDs so do not use those medications will using the Toradol. You can continue to use Tylenol. Make sure to take the tamsulosin daily until the stone is passed. Use the Zofran as needed, provided via instymeds, for nausea. Prescriptions: New ketorolac 10 mg tablet 10 mg PO Q6H PRN (Reason: pain) Qty: 20 0RF Rx Instructions: maximum total duration of 5 days from all oral, intranasal, or parenteral formulations tamsulosin 0.4 mg capsule 0.4 mg PO DAILY Qty: 7 0RF No Action multivitamin Tablet 1 tab PO QDAY metoprolol succinate 50 mg tablet extended release 24 hr 50 - 100 mg PO DAILY Qty: 180 3RF lansoprazole 30 mg capsule,delayed release(DR/EC) 30 mg PO QDAY Qty: 90 3RF losartan-hydrochlorothiazide 100-25 mg tablet 1 tab PO DAILY Qty: 90 3RF semaglutide (weight loss) 1.7 mg/0.75 mL pen injector 1.7 mg subcut QWEEK Qty: 3 5RF Rx Instructions: administer weeks 13 through 16 of therapy Follow Up/Referrals: Juma Morales MD [Primary Care Provider] - Stand Alone Forms: Screen Tonic Info Instructions
[2025-03-09 01:48] LABS: Appearance Urine Clear (Clear); Basophils Absolute Auto 0.02 K/uL (0.00-0.30); Basophils Percent Auto 0.2 % (0.0-3.0); Bilirubin Urine 1+ (Negative); Blood Urine 3+ (Negative); Color Urine Yellow (Yellow); Eosinophils Absolute Auto 0.17 K/uL (0.00-0.50); Eosinophils Percent Auto 1.9 % (0.0-7.0); Glucose Urine Negative (Negative); Hemoglobin* 15.1 gm/dL (13.5-17.5); Immature Granulocytes Abs Auto 0.01 K/uL (0.00-0.30); Immature Granulocytes Pct Auto 0.1 %; Ketones Urine Trace (Negative); Leukocyte Esterase Urine Negative (Negative); Lymphocytes Absolute Auto 1.88 K/uL (0.90-2.90); Lymphocytes Percent Auto 21.2 % (20-44); Mean Corpuscular HGB Conc 34 gm/dL (32-36); Mean Corpuscular Hemoglobin 31 pg (26-34); Mean Corpuscular Volume 89 fL (80-100); Monocytes Percent Auto 9.5 % (0.0-11.0); Neutrophils Absolute Auto 5.93 K/uL (1.7-7.0); Neutrophils Percent Auto 67.1 % (42.0-72.0); Nitrite Urine Negative (Negative); Platelet Count* 281 K/uL (140-440); Protein Urine 1+ (Negative); Red Blood Count 4.95 m/uL (4.30-5.90); Specific Gravity Urine 1.025 (1.000-1.030); Urobilinogen Urine 0.2 (0.2-1.0); White Blood Count* 8.85 K/uL (4.50-11.00); pH Urine 5.5 (5.0-8.5)
[2025-03-09] MEDS: ONDANSETRON 2 MG/ML inj 4 MG IVP (01:52)
[2025-03-09] MEDS: KETOROLAC 15 MG/ML inj IVP (01:52)
[2025-03-09 01:59] LABS: Slide Review Reflex No; WBC Urine 0-2 (0-5)
[2025-03-09 02:10] LABS: Anion Gap 9 mEq/L (7-15); Blood Urea Nitrogen* 20 mg/dL (7-30); Calcium* 9.4 mg/dL (8.4-10.6); Carbon Dioxide* 27 mmol/L (20-32); Chloride* 106 mmol/L (96-114); Creatinine* 1.1 mg/dL (0.5-1.5); Est. Creatinine Clearance* 90.69; Estimated Glomerular Filt Rate 79 ml/min; Glucose* 109 mg/dL (60-115); Potassium* 3.8 mmol/L (3.6-5.1); Sodium* 142 mmol/L (135-149)
--- OUTSIDE RECORDS SUMMARY | 2025-03-09 02:28 | XMS_ITS | Encounter Summary ---
Author Organization [place] Address [address] [place] [address] Care Team Providers Care Veneer Drier Feeder Name Role Phone LeonardoalfredaJanuary Primary Care Provider [phone] [facility] Primary Care Provider Demarcus Renteria Primary Care Provider Encounter Details Date Type Department Care Team (Late st Contact Info) Description 09/20/2016 [facility] [address] [place] [id number] Herman Good MD [facility] [address] [address] Pre-operative laboratory examination (Primary Dx) Social History Tobacco Use Types Packs/Day Years Used Date Smoking Tobacco: Never Smokeless Tobacco: Never Alcohol Use Standard Drinks/Week Comments Yes 0 (1 standard drink = 0.6 oz pur e alcohol) 6 dinks weekly Sex and Gender Information Value Date Recorded Sex Assigned at Not on file Legal Sex Male 2:58 AM WELFARE INTERVIEWER Gender Identity Not on file Sexual Orientation Not on file documented as of this encounter Plan of Treatment Not on file documented as of this encounter Results * Methicillin Resistant Staph Aureus PCR (09/20/2016 4:25 PM WELFARE INTERVIEWER) Specimen Description [facility] Methicillin Resist/Sens S. aureus PCR Negative MRSA Negative: SA Negative MRSA and Staphylococcus aureus target DNA not detected, presumed negative for MRSA and SA colonization or the number of bacteria present may be below the limit of detection for the assay. FDA approved assay performed using Paradine GeneXpert(R) real-time PCR. NEG [facility] 09/20/2016 4:25 PM WELFARE INTERVIEWER 09/20/2016 6:09 PM WELFARE INTERVIEWER us Herman Good MD LAB - MICRO GENERAL ORDERABLES Final Result [facility] [address] [place] [address], [facility] [address], [place] [address] [phone] documented in this encounter Visit Diagnoses Diagnosis Pre-operative laboratory examination- Primary Pre-procedural laboratory examination documented in this encounter Care Teams Veneer Drier Feeder Relationship Specialty Start Date End Date January PCP - General Physician Cotton Ball Bagger 09/30/14 10/01/16 [facility], [address] [address] PCP - General 10/02/16 05/26/20 Demarcus Renteria [address] [address] PCP - General Family Practice 05/27/20 documented as of this encounter
--- OUTSIDE RECORDS SUMMARY | 2025-03-09 02:28 | XMS_ITS | Clinical Summary ---
Author Organization [email or web address] Address [address] [place] [address] Care Team Providers Care Tool Or Die Drawing Checker Name Role Phone Juma Morales MD Primary Care Provider [phone] Source Comments You are receiving this document as you are listed as the primary care provider,follow-up provider, or the patient has been referred to you for consultation.This is in compliance with the Medicare and[facility] EHR Incentive Program,which states Providers who transition their patient to another setting of careor provider of care or refers their patient to another provider of care shouldprovide summary care record for each transition of care or referral. [employer] Allergies Active Allergy Reactions Criticality Noted Date [...] this topic Insurance BLUE LINK Care Teams Tool Or Die Drawing Checker Relationship Specialty Start Date End Date Juma Morales MD [address] [place] [address] PCP - General Family Practice 07/31/22
--- OUTSIDE RECORDS SUMMARY | 2025-03-09 02:28 | XMS_ITS | Encounter Summary ---
Author Organization [place] Address [address] [place] [address] Care Team Providers Care Air Traffic Controller Center Name Role Phone None, Bfp Primary Care Provider Billy Car, January Primary Care Provider Clinic, [facility] Primary Care Provider Demarcus Renteria Primary Care Provider [phone] Encounter Details Date Type Department Care Team (Late st Contact Info) Description 09/16/2014 [facility] [address] [place] [phone] Herman Good MD [facility] [address] [phone] Preoperative examination, unspecified (Primary Dx) Social History Tobacco Use Types Packs/Day Years Used Date Smoking Tobacco: Never Smokeless Tobacco: Never Alcohol Use Standard Drinks/Week Comments Yes 0 (1 standard drink = 0.6 oz pur e alcohol) 6 dinks weekly Sex and Gender Information Value Date Recorded Sex Assigned at Not on file Legal Sex Male 2:58 AM COLD MILL OPERATOR Gender Identity Not on file Sexual Orientation Not on file documented as of this encounter Plan of Treatment Not on file documented as of this encounter Results * Methicillin Resistant Staph Aureus PCR (09/23/2014 5:10 PM COLD MILL OPERATOR) Specimen Description [facility] Methicillin Resist/Sens S. aureus PCR Negative MRSA Negative: SA Negative MRSA and Staphylococcus aureus target DNA not detected, presumed negative for MRSA and SA colonization or the number of bacteria present may be below the limit of detection for the assay. FDA approved assay performed using OPPRTUNITY GeneXpert(R) real-time PCR. NEG [facility] 09/23/2014 5:10 PM COLD MILL OPERATOR 09/23/2014 5:33 PM COLD MILL OPERATOR us Herman Good MD LAB - MICRO GENERAL ORDERABLES Final Result [facility] [address] [place] [address] [facility] [address] [place], [place] [address] [phone] documented in this encounter Visit Diagnoses Diagnosis Preoperative examination, unspecified- Primary documented in this encounter Care Teams Air Traffic Controller Center Relationship Specialty Start Date End Date None, Bfp PCP - General 11/04/99 09/29/14 JocelineJanuary PCP - General Physician Handkerchief Presser 09/30/14 10/01/16 [facility], [address] [address] PCP - General 10/02/16 05/26/20 Demarcus Renteria [address] [address] PCP - General Family Practice 05/27/20 documented as of this encounter
--- OUTSIDE RECORDS SUMMARY | 2025-03-09 02:28 | XMS_ITS | Clinical Summary ---
Author Organization [place] Address [address] [place] [address] Care Team Providers Care Purchasing And Claims Supervisor Name Role Phone Demarcus Renteria Primary Care Provider [phone] Allergies Active Allergy Reactions Criticality Noted Date [...] on file Legal Sex Male 2:58 AM JUNIOR ENGINEER Gender Identity Not on file Sexual Orientation [...] this topic Medical Devices Implanted Type Area Ship Boss Device Identifier Shelf Expiration Date Model / Serial / Lot Graft Bone Magnifuse [id number] Implanted:Qty: 1 on 06/10/2020 by Dewey Danielson MD at [facility] Bone/Tissue /Biologic N/A: Spine Lumbar [employer] 04/06/2022 [id number] / [id number] / Imp Scr Hip Howm 6.5x30mm Gap Implanted:Qty: 1 on 10/02/2016 by Herman Good MD at [facility] Metallic Hardware/An chor Right: Hip [employer] 10/24/2020 / / [id number] Imp Scr Hip Howm 6.5x15mm Gap Implanted:Qty: 1 on 10/02/2016 by Herman Good MD at [facility] Metallic Hardware/An chor Right: Hip [employer] 08/22/2019 / / [id number] Imp Scr Hip Howm 6.5x30mm Gap Implanted:Qty: 1 on 10/02/2016 by Herman Good MD at [facility] Metallic Hardware/An chor Right: Hip [employer] 06/28/2021 / / [id number] Reline-O Screw, 6.5x50mm Implanted:Qty: 2 on 06/10/2020 by Dewey Danielson MD at [facility] Metallic Hardware/An chor N/A: Spine Lumbar NUVASIVE [id number] / / [id number] 10AUG 2019 Reline-O Screw, 7.5x50mm Implanted:Qty: 6 on 06/10/2020 by Dewey Danielson MD at [facility] Metallic Hardware/An chor N/A: Spine Lumbar NUVASIVE [id number] / / [id number] 10AUG 2019 Imp Liner Strk Trident X3 Poly 36mm 0deg Sz G 623-00-36g Implanted:Qty: 1 on 10/02/2016 by Herman Good MD at [facility] Total Joint Component/I nsert Right: Hip [employer] 05/18/2021 623-00-36G / / [id number] Imp Shell Acet Strk Multi-Hole Rev 62mm Sz G 509-02-62g Implanted:Qty: 1 on 10/02/2016 by Herman Good MD at [facility] Total Joint Component/I nsert Right: Hip [employer] 01/22/2021 509-02-62G / / [id number] Imp Head Femoral Strk Biolox Delta Ceramic 36mm +0mm Implanted:Qty: 1 on 10/02/2016 by Herman Good MD at [facility] Total Joint Component/I nsert Right: Hip [employer] 05/30/2021 6570-0-136 / / [id number] Imp Stem Femoral Hip Strk Accolade Ii 132deg Sz 7 [id number] Implanted:Qty: 1 on 10/02/2016 by Herman Good MD at [facility] Total Joint Component/I nsert Right: Hip [employer] 06/28/2021 5985-0164 / / [id number] Imp Liner Strk Trident X3 Poly 36mm 0deg Sz F 623-00-36f Implanted:Qty: 1 on 10/05/2014 by Herman Good MD at [facility] Left: Hip [employer] 06/21/2019 623-00-36F / / [id number] Tritanium Hemispherical Cluster Hole Shell 60mm F Implanted:Qty: 1 on 10/05/2014 by Herman Good MD at [facility] Left: Hip JOSE 04/20/2019 502-03-60F / / [id number] Imp Scr Bone Strk Torx 6.5x20mm Can Implanted:Qty: 1 on 10/05/2014 by Herman Good MD at [facility] Left: Hip [employer] 04/20/2019 / / [id number] Accolade Ii 127deg Neck Angle Hip Stem #7 Implanted:Qty: 1 on 10/05/2014 by Herman Good MD at [facility] Left: Hip [employer]SE 07/21/2019 0471-7036 / / [id number] Imp Head Femoral Strk Biolox Delta Ceramic 36mm +0mm Implanted:Qty: 1 on 10/05/2014 by Herman Good MD at [facility] Left: Hip [employer] 07/21/2019 6570-0-136 / / [id number], [id number], 15deg Implanted:Qty: 1 on 06/10/2020 by Dewey Danielson MD at [facility] N/A: Spine Lumbar [employer] 06/05/2023 [id number] / / [id number] Cocr Jaciel [id number] Implanted:Qty: 1 on 06/10/2020 by Dewey Danielson MD at [facility] N/A: Spine Lumbar NUVASIVE [id number] / / [id number] 06/10/2020 Cocr Jaciel [id number] Implanted:Qty: 1 on 06/10/2020 by Dewey Danielson MD at [facility] N/A: Spine Lumbar NUVASIVE [id number] / / [id number] Reline Lock Screw Implanted:Qty: 8 on 06/10/2020 by Dewey Danielson MD at [facility] N/A: Spine Lumbar NUVASIVE [id number] / / [id number] Procedures Procedure Name Priority Date/Time Associated Diagnosis Comments BASIC METABOLIC PANEL Routine 10/03/2016 6:51 AM JUNIOR ENGINEER from Last 3 Months or Most Recently Relevant to Health Maintenance Results * (ABNORMAL) Basic metabolic panel (10/03/2016 6:51 AM JUNIOR ENGINEER) Sodium 138 133 - 144 mmol/L [facility] Potassium 4.4 3.4 - 5.3 mmol/L [facility] Chloride 101 94 - 109 mmol/L [facility] Carbon Dioxide 27 20 - 32 mmol/L [facility] Anion Gap 10 3 - 14 mmol/L [facility] Glucose 155(H) 70 - 99 mg/dL [facility] Urea Nitrogen 18 7 - 30 mg/dL [facility] Creatinine 1.05 0.66 - 1.25 mg/dL [facility] GFR Estimate 76 >60 mL/min/1. m2 [facility] Comment:Non GFR Calc GFR Estimate If Black >90 GFR Calc >60 mL/min/1. 7m2 [facility] Calcium 8.7 8.5 - 10.1 mg/dL [facility] Blood specimen (specimen) 10/03/2016 6:51 AM JUNIOR ENGINEER 10/03/2016 7:18 AM JUNIOR ENGINEER us Katie Rubio MD LAB - BLOOD ORDERABLES Final Res ult [facility] [address] [place] [address], [facility] [phone] from Last 3 Months or Most Recently Relevant to Health Maintenance [place] [address] Advance Directives For more information, please contact: [phone] * Full Code (Latest Code Status on [...] 5:51 PM 10/06/2014 10:16 PM Care Teams Purchasing And Claims Supervisor Relationship Specialty Start Date End Date Demarcus Renteria [address] [address] PCP - General Family Practice 05/27/20
--- OUTSIDE RECORDS SUMMARY | 2025-03-09 02:28 | XMS_ITS | Clinical Summary ---
Author Organization [facility] Address [address] [place] [address] Care Team Providers Care Commercial Producer Name Role Phone Juma Morales MD Primary Care Provider [phone] Allergies Active Allergy Reactions Criticality Noted Date [...] losartan (COZAAR) 25 mg tablet 0 Active rvgkwwrz-kaz-tmto- vitamin K 18 mg iron-25 mcg tab [...] a day. 50 Tablet 10/17/2022 11:23 AM UNDER TRIMMER 2 Active WalkerIndications: Primary osteoarthritis of left knee Walker with front wheels for home use. 1 Each 2 Active ibuprofen (IBU) 600 mg tabletIndications: Primary osteoarthritis of left knee Take 1 Tablet (600 mg) by mouth every 8 hours if needed for Pain. Maximum of 3200 mg in 24 hours. 60 Tablet 1 10/17/2022 11:23 AM UNDER TRIMMER 2 Active HYDROmorphone (DILAUDID) 2 mg tabletIndications: Primary osteoarthritis of left knee Take 1-2 Tablets (2-4 mg) by mouth every 4 hours if needed for Pain. 40 Tablet 10/17/2022 11:23 AM UNDER TRIMMER 2 Active Active Problems Problem Noted Date [...] on file Legal Sex Male 7:32 AM UNDER TRIMMER Gender Identity Not on file Sexual Orientation Not on file Obstetrics History Last Filed Vital Signs Vital Sign Reading Time Taken Comments Blood Pressure 147/74 10/17/2022 2:03 PM UNDER TRIMMER Pulse 93 10/17/2022 2:03 PM UNDER TRIMMER Temperature 36.7 C (98.1 F) 10/17/2022 10:56 AM UNDER TRIMMER Respiratory Rate 16 10/17/2022 2:03 PM UNDER TRIMMER Oxygen Saturation 92% 10/17/2022 2:03 PM UNDER TRIMMER Inhaled Oxygen Concentration - - Weight 162.3 kg (357 lb 12.9 oz) 10/17/2022 6:54 AM UNDER TRIMMER Height 188 cm (6' 2) 10/17/2022 6:54 AM UNDER TRIMMER Body Mass Index 45.94 10/17/2022 6:54 AM UNDER TRIMMER Plan of Treatment Health Maintenance Due Date [...] Ended) 2025 Medical Devices Implanted Type Area Market Superintendent Device Identifier Shelf Expiration Date Model / Serial / Lot Cmnt Bone Surg Simplex - [id number] Implanted:Qty: 1 on 11/02/2008 at [facility] Right: Hip [employer] 05/22/2011 6191-1-010 # / / [id number] Implant On The Fly - [id number] Implanted:Qty: 1 on 11/02/2008 at [facility] Right: Hip [employer] 07/22/2012 570-09-060 / / [id number] Description:CORMET CUP SIZE 9/60MM Implant On The Fly - [id number] Implanted:Qty: 1 on 11/02/2008 at [facility] Right: Hip [employer] 05/22/2012 571-09-054 / / [id number] Description:CORMET HEAD 9/54 MM Evolution Mp Cs Implanted:Qty: 1 on 10/17/2022 by Malik Ureña MD at [facility] Left: Knee H [employer] 04/01/2028 [id number] / / [id number] Cmnt Bone Simplex Hv - [id number] Implanted:Qty: 1 on 10/17/2022 by Malik Ureña MD at [facility] Left: Knee [employer] 03/21/2024 6194-1-001 / / [id number] Cmnt Bone Simplex Hv - [id number] Implanted:Qty: 1 on 10/17/2022 by Malik Ureña MD at [facility] Left: Knee [employer] 05/21/2024 6194-1-001 / / [id number] Evolution Tibial Base Implanted:Qty: 1 on 10/17/2022 by Malik Ureña MD at [facility] Left: Knee H [employer] 09/16/2030 [id number] / / [id number] Patella Implanted:Qty: 1 on 10/17/2022 by Malik Ureña MD at [facility] Left: Knee H [employer] 04/01/2030 [id number] / / [id number] Evolution Cs/Cr Femoral Component Implanted:Qty: 1 on 10/17/2022 by Malik Ureña MD at [facility] Left: Knee 09/14/2028 [id number] / / [id number] Explanted Type Area Market Superintendent Device Identifier Shelf Expiration Date Model / Serial / Lot Pin Millan Nonthreaded 01/04 Strl [id number] Mk - [id number] Explanted:Qty: 1 on 11/02/2008 at [facility] Right: Hip Mk [employer] 10/22/2017 47-187-07-5 9# / / [id number] Insurance [facility] x5 (Home) [phone] x5 (Work) ATTN ACCTS PAYABLE [address] [address] [place] [address] Advance Directives * Full Code (Latest Code Status on File) Date Activated Date Inactivated Comments 10/17/2022 6:32 AM 10/17/2022 4:29 PM Question Answer Comments Code Status Discussion: Not Discussed * Full Code Date Activated Date Inactivated Comments 11/02/2008 3:22 PM 11/04/2008 1:53 PM * Full Code Date Activated Date Inactivated Comments 11/02/2008 1:27 PM 11/02/2008 3:22 PM Care Teams Commercial Producer Relationship Specialty Start Date End Date Juma Morales MD [address] [place] [address] PCP - General Family Practice 09/29/22
[2025-03-09] MEDS: TAMSULOSIN HCL 0.4 MG CAPSULE PO (02:31)
[2025-03-09] MEDS: MORPHINE 4 MG/ML INJ IVP (02:37)
[2025-03-09 03:00] VITALS: BP 148/70; PULSE 84; RESP 16; O2SAT 95
== END 2025-03-09 03:08 | disposition home or self-care (01) ==
PROVIDERS: Emergency Provider Student in an Organized Health Care Education/Training Program; PCP Family Medicine
DX: N20.9 Urinary calculus, unspecified (principal); R11.0 Nausea; R31.9 Hematuria, unspecified
CPT/HCPCS: 36415; 74176; 80048; 81001; 85025; 96374; 96375; 99284; A9270; J1885; J2270; J2405

== ENCOUNTER 2025-09-18 08:06 | Outpatient (CLI) | payer BC, SELFPAY | END 2025-09-18 08:07 | disposition home or self-care (01) | LOC: NFLDREF 08:34 | PROVIDERS: PCP Family Medicine; Visit Provider Family Medicine | DX: Z13.9 Encounter for screening, unspecified (principal); E78.5 Hyperlipidemia, unspecified; R97.20 Elevated prostate specific antigen [PSA] | CPT/HCPCS: 80053; 80061; G0103 ==